=== PATIENT | male | born 1995 | race Caucasian/White ===

== ENCOUNTER 2016-09-29 00:35 | Emergency (ER) ==
[2016-09-29 00:50] VITALS: BP 123/72; TEMP 97.9; BMI 20.5
[2016-09-29 01:00] LABS: BASOPHILS % (AUTO) 0.2 % (0.0-3.0); EOSINOPHILS # (AUTO) 0.1 K/ul (0.0-0.7); EOSINOPHILS % (AUTO) 0.3 % (0.0-7.0); HEMATOCRIT 45.6 % (42.0-52.0); HEMOGLOBIN 16.5 g/dl (14.0-18.0); IMMATURE GRANULOCYTE % (AUTO) 0.5 % (0.0-5.0); LYMPHOCYTES # (AUTO) 1.8 K/uL (0.60-3.4); LYMPHOCYTES % (AUTO) 8.7 (10.0-50.0); MEAN CORPUSCULAR HEMOGLOBIN 31.4 pg (27.0-31.0); MEAN CORPUSCULAR HGB CONC 36.2 (31.8-35.4); MEAN CORPUSCULAR VOLUME 86.7 fl (80.0-94.0); MONOCYTES # (AUTO) 1.4 K/uL (0.4-2.0); MONOCYTES % (AUTO) 6.5 (0-10); NEUTROPHILS # (AUTO) 17.5 K/ul (2.0-6.9); NEUTROPHILS % (AUTO) 83.8; PLATELET COUNT 215 10^3/uL (140-440); RED BLOOD COUNT 5.26 10^6/ul (4.70-6.10); WHITE BLOOD COUNT 20.89 K/ul (4.2-10.2)
[2016-09-29] MEDS: MORPHINE 2 MG/ML SYRINGE IVP STA (01:03)
[2016-09-29] MEDS: SODIUM CHLORIDE 1,000 ML IV STA (01:04)
[2016-09-29] MEDS: ZOFRAN 4 MG/2 ML IVP STA (01:04)
[2016-09-29 01:20] LABS: ALBUMIN 4.6 g/dL (3.4-5.0); ALBUMIN/GLOBULIN RATIO 1.64; ANION GAP 16.2; BILIRUBIN,TOTAL 0.39 mg/dL (0.60-1.40); BUN/CREATININE RATIO 16.66; CALCIUM 9.8 mg/dL (8.2-10.2); CREATININE 1.08 mg/dL (0.60-1.10); POTASSIUM 4.2 mmol/L (3.5-5.1); TOTAL PROTEIN 7.4 g/dL (6.4-8.2)
[2016-09-29 01:21] LABS: BILIRUBIN,URINE 1+ (NEGATIVE); KETONES,URINE 2+ (NEGATIVE); LEUKOCYTE ESTERASE ,URINE Negative (NEGATIVE); NITRITE,URINE Negative (NEGATIVE); PH,URINE 5.5 (5-9); PROTEIN,URINE Negative (NEGATIVE); URINE, BLOOD Trace-lysed (NEGATIVE)
[2016-09-29 01:28] LABS: ADD URINE MICROSCOPIC YES; BACTERIA,URINE TRACE (NOT PRESENT)
[2016-09-29 01:35] LABS: ERYTHROCYTE SEDIMENTATION RATE 5 mm/hr (0-15); ESR INTERNAL QC INTERNAL QC VALID
--- NOTE | 2016-09-29 02:11 | CT ---
EXAM: CT of the abdomen and pelvis with and without IV contrast. HISTORY: Right upper quadrant pain. PROCEDURE: Contiguous axial CT images of the abdomen and pelvis with and without IV contrast with c oronal and sagittal reformats. FINDINGS: The liver, gallbladder, pancreas, spleen, adrenal glands and left kidney are normal in ap pearance. There is a 0.2 cm nonobstructive calcification in the right kidney. There is a small cys t in the right kidney. The abdominal aorta is normal in appearance. The appendix is incompletely vi sualized. The visualized portion of the appendix is normal in appearance. There are multiple loops of fluid-filled small bowel measuring up to 3.6 cm in diameter. No free fluid or free air in the ab domen or pelvis. The bladder is decompressed which limits the evaluation. The seminal vesicles and prostate gland are unremarkable. The bones and soft tissues are unremarkable. Impression: Small bowel ileus as described. Recommend follow-up plain films to resolution to exclud e early or partial small bowel obstruction. Nonobstructive right nephrolithiasis as described.
--- NOTE | 2016-09-29 02:28 | ED.PDOC ---
General ED Provider: Dr. NITA ZHAO-ER Chief Complaint: Abdominal Pain Stated Complaint: im hurting Time Seen by Physician: 00:40 Mode of Arrival: Walk-In Information Source: Patient, Family Exam Limitations: No limitations Nursing and Triage Documentation Reviewed and Agree: Yes GI Complaint Exam - Abdominal Pain Complaint/Exam Onset: Gradual Duration: 2 hrs Symptoms Are: Still present Timing: Constant Initial Severity: Mild Current Severity: Moderate Location of Pain: RUQ Character: Reports: Dull, Aching, Cramping Aggravating: Reports: None Associated Signs and Symptoms: Reports: Decreased appetite, Nausea. Denies: Diaphoresis, Fever, Cough, Chest pain, Dizziness, Back pain, Constipation, Blood in stool, Dysuria, Urinary frequency, Decreased urine output, Discharge, Vomiting, Diarrhea, Decreased activity Testicular Torsion Risk Factors: Reports: None Surgical Obstruction Risk Factors: Reports: Colicky abdominal pain Related Surgical History: Reports: None Abdominal Findings: Present: None Differential Diagnoses: Appendicitis, Pancreatitis, GB Review of Systems - Review Of Systems Constitutional: Reports: No symptoms Eyes: Reports: No symptoms Ears, Nose, Mouth, Throat: Reports: No symptoms Respiratory: Reports: No symptoms Cardiac: Reports: No symptoms GI: Reports: Abdominal pain, Nausea : Reports: No symptoms Musculoskeletal: Reports: No symptoms Skin: Reports: No symptoms Neurological: Reports: No symptoms Endocrine: Reports: No symptoms Hematologic/Lymphatic: Reports: No symptoms All Other Systems: Reviewed and Negative Past Medical History - Past Medical History Previously Healthy: Yes Endocrine: Reports: Unknown Cardiovascular: Reports: Unknown Respiratory: Reports: Unknown Hematological: Reports: Unknown Gastrointestinal: Reports: Unknown Genitourinary: Reports: Unknown Neuro/Psych: Reports: Unknown Musculoskeletal: Reports: Unknown Cancer: Reports: Unknown - Surgical History General Surgical History: Reports: Unknown - Family History Family History: Reports: Unknown - Social History Smoking Status: Current every day smoker Hx Substance Use: No Alcohol Screening: Occasionally Lives: With family - Immunizations Tetanus Shot up to Date: Yes Physical Exam - Physical Exam Appearance: Well-appearing Pain Distress: Mild Eyes: WILFRIDO, EOMI, Conjunctiva clear ENT: Ears normal, Nose normal, Oropharynx normal Neck: Supple Respiratory: Airway patent, Breath sounds clear, Breath sounds equal, Respirations nonlabored Cardiovascular: RRR, Pulses normal, No rub, No murmur GI/: Soft, Nontender, No masses Musculoskeletal: Normal strength Skin: Warm Neurological: Sensation intact Psychiatric: Affect appropriate, Mood appropriate, Anxious Interpretation - Radiology Interpretation Radiology Interpretation By: Radiologist Radiology Results: Negative Exam Interpreted: CT Scan Re-Evaluation - Re-Evaluation Time of Re-Evaluation: 03:00 Status: Improved Vital Signs Stable: Yes Pain Level: 0 Appearance: NAD Lungs: Clear Skin: Warm and Dry Neuro: Alert and Oriented X3 CV: RRR Critical Care Note - Critical Care Note Total Time (mins): 0 Course - Course Hematology/Chemistry: 09/29/16 00:59 09/29/16 00:59 Orders, Labs, Meds: Lab Review 09/29/16 09/29/16 00:59 01:15 WBC 20.89 H RBC 5.26 Hgb 16.5 Hct 45.6 MCV 86.7 MCH 31.4 H MCHC 36.2 H RDW Coeff of Mark 11.9 Plt Count 215 Immature Gran % (Auto) 0.5 Neut % (Auto) 83.8 Lymph % (Auto) 8.7 L Erath % (Auto) 6.5 Eos % (Auto) 0.3 Baso % (Auto) 0.2 Immature Gran # (Auto) 0.1 Neut # 17.5 H Lymph # 1.8 Erath # 1.4 Eos # 0.1 Baso # 0.0 ESR 5 Sodium 141 Potassium 4.2 Chloride 102 Carbon Dioxide 27 Anion Gap 16.2 BUN 18 Creatinine 1.08 Estimated GFR (MDRD) 88.00 BUN/Creatinine Ratio 16.66 Glucose 92 Calcium 9.8 Total Bilirubin 0.39 L AST 18 ALT 17 Alkaline Phosphatase 98 Total Protein 7.4 Albumin 4.6 Globulin 2.8 Albumin/Globulin Ratio 1.64 Amylase 29 Lipase 26 Urine Color Yellow Urine Clarity Clear Urine pH 5.5 Ur Specific Lyons >=1.030 Urine Protein Negative Urine Glucose (UA) Negative Urine Ketones 2+ Urine Blood Trace-lysed Urine Nitrite Negative Urine Bilirubin 1+ Urine Urobilinogen 0.2 Ur Leukocyte Esterase Negative Urine Microscopic RBC 2-5 Ur Squamous Epith Cells Not Reportable Urine Bacteria Trace Urine Mucus 1+ Orders Category Date Time Status NPO REMINDER: IMAGING ONCE CARE 09/29/16 00:50 Completed IV [ED IV/MEDIPORT/POWERPORT] .ONCE EMERGENCY 09/29/16 00:49 Active AMYLASE Stat LAB 09/29/16 00:59 Completed CBC W/ AUTO DIFF Stat LAB 09/29/16 00:59 Completed COMPREHENSIVE METABOLIC PANEL Stat LAB 09/29/16 00:59 Completed ESR Stat LAB 09/29/16 00:59 Completed LIPASE Stat LAB 09/29/16 00:59 Completed URINALYSIS C & S IF INDICATED Stat LAB 09/29/16 01:17 Completed 0.9 % Sodium Chloride [Saline Flush] MEDS 09/29/16 00:49 Ordered 1 syr IVF PRN PRN Hydromorphone HCl [Dilaudid 1 mg/ml Syringe] MEDS 09/29/16 02:25 Discontinued 1 mg IVP ONCE STA Ketorolac Tromethamine [Toradol] MEDS 09/29/16 02:36 Stat 30 mg IVP ONCE STA Morphine Sulfate [Morphine 2 mg/ml Syringe] MEDS 09/29/16 00:50 Discontinued 2 mg IVP ONCE STA Ondansetron HCl/Pf [Zofran 4 mg/2 ml] MEDS 09/29/16 00:50 Discontinued 4 mg IVP ONCE STA Sodium Chloride 0.9% [Sodium Chloride] 1,000 ml MEDS 09/29/16 00:50 Active IV 100 mls/hr CT ABDOMEN/PELVIS W/WO CONTRAS Stat RADS 09/29/16 00:50 Completed Medications Generic Name Dose Route Start Last Admin Trade Name Freq PRN Reason Stop Dose Admin Sodium Chloride 1,000 mls @ 100 mls/hr 09/29/16 00:50 09/29/16 01:04 Sodium Chloride IV 09/29/16 10:49 100 mls/hr .Q10H STA Administration Sodium Chloride 1 syr 09/29/16 00:49 Saline Flush IVF PRN PRN To flush IV Discontinued Medications Generic Name Dose Route Start Last Admin Trade Name Freq PRN Reason Stop Dose Admin Hydromorphone HCl 1 mg 09/29/16 02:25 Dilaudid 1 Mg/Ml Syringe IVP 09/29/16 02:26 ONCE STA Morphine Sulfate 2 mg 09/29/16 00:50 09/29/16 01:03 Morphine 2 Mg/Ml Syringe IVP 09/29/16 00:51 2 mg ONCE STA Administration Ondansetron HCl 4 mg 09/29/16 00:50 09/29/16 01:04 Zofran 4 Mg/2 Ml IVP 09/29/16 00:51 4 mg ONCE STA Administration Vital Signs: Temp Pulse Resp BP Pulse Ox 09/29/16 00:36 97.9 F 123 H 18 123/72 96 Departure - Departure Time of Disposition: 02:29 Disposition: HOME SELF-CARE Discharge Problem: Abdominal pain Instructions: Acute Abdominal Pain (ED) Condition: Good Pt referred to PMD for follow-up: Yes Additional Instructions: clear liquid diet and advance to low fat diet--talk to your pcp about xrays on the gb--return if any persistent vomiting, temp over 101 or uncontrolled pain=-- librax q 8hrs prn pain #12-- Allergies/Adverse Reactions: Allergies No Known Allergies Allergy (Unverified 09/29/16 00:40) Home Medications: Ambulatory Orders 1 [No Reported Medications] 09/29/16 Disposition Discussed With: Patient, Family
[2016-09-29] MEDS: DILAUDID 1 MG/ML SYRINGE IVP STA (02:37)
[2016-09-29] MEDS: TORADOL IVP STA (02:41)
== END 2016-09-29 02:42 | disposition home or self-care (01) ==
LOC: ED 00:35
DX: R10.11 Right upper quadrant pain (principal); F17.210 Nicotine dependence, cigarettes, uncomplicated
CPT/HCPCS: 36415; 80053; 81001; 82150; 83690; 85025; 85651; 96360; 96361; 96374; 96375; 99283